=== PATIENT | male | born 1985 | race Caucasian/White ===

== ENCOUNTER 2017-11-12 06:50 | Emergency (ER) | payer BC ==
[~2017-11-12] VITALS: Ht 175.3 cm; Wt 77.1 kg
[2017-11-12 06:55] VITALS: BP 133/84
[2017-11-12] MEDS ORDERED: NORCO 5-325 TA1 EACH PO (09:14)
== END 2017-11-12 10:10 | disposition home or self-care (01) ==
LOC: ER 06:50
DX: S63.282A Dislocation of proximal interphalangeal joint of right middle finger, initial encounter (principal); V87.8XXA Person injured in other specified noncollision transport accidents involving motor vehicle (traffic), initial encounter; Y93.89 Activity, other specified; Y92.89 Other specified places as the place of occurrence of the external cause; Y99.8 Other external cause status